=== PATIENT | female | born 1955 | race Caucasian/White ===

== ENCOUNTER → 2018-02-22 | Outpatient (CLI) | payer SELFPAY ==
[~2018-02-22] MED LIST: ASPIR 8181 M1 PO; GLUCOPHAGE PO; GLUCOPHAGE1000 MG PO; HUMALOG100 UNIT/1 SC; HYDROCHLOROTHIA25 MG PO; LEVEMIR100 UNIT/2 SC; MAGNESIUM400 M1 PO; PROTONIX40 MG PO; TOPROL XL25 MG PO; VITAMIN D PO; ZOCOR20 MG PO; ZYRTEC5 MG PO
== END | disposition home or self-care (01) ==
LOC: RAD 15:37
DX: R06.00 Dyspnea, unspecified (principal); F17.200 Nicotine dependence, unspecified, uncomplicated
CPT/HCPCS: 71046